=== PATIENT | male | born 1990 | race Caucasian/White ===

== ENCOUNTER 2020-02-13 20:03 | Emergency (ER) | payer BC ==
[~2020-02-13] VITALS: Ht 180.3 cm; Wt 156.8 kg
[2020-02-13] MEDS ORDERED: IV NORMAL SALINE 1000ML BAG 1,000 ML IV ONE (21:00)
[2020-02-13] MEDS ORDERED: diphenhydrAMINE 50 MG/ML VIAL IVP ONE (21:00)
[2020-02-13] MEDS ORDERED: PROCHLORPERAZINE 10 MG/2 ML VIAL. IV ONE (21:00)
--- NOTE | 2020-02-13 21:02 | PHYS DOC ---
General Adult EDM: Chief Complaint: HYPERTENSION HPI: HPI: The history was obtained from the patient. Patient is a 29-year-old male with PMH asthma who presents with a chief complaint of headache. Patient states he has had a headache for the past 24 hours. He states headache was gradual in onset. States it feels like a band is wrapped around his head. Denies any vision or hearing changes. Denies vomiting. Denies neck pain. Has not tried medicine at home to help. Denies syncope. States he was at rest when the headache began. Also notes some gradual increase in shortness of breath. States has a history of asthma so it is not all that unusual for him but he states it does seem slightly worse than normal. Unsure when this became worse. Denies chest pain. Does note a 15 pound weight gain over the past 2 to 3 months. States he's arms do feel tight bilaterally. Denies back pain. States he does not have a history of high blood pressure. States he was an urgent care facility prior to arrival and they stated he should go to emergency department because they were closing soon do not have capabilities to care for him. Denies cough or fever. Patient denies acute onset of headache reaching maximal intensity in under one hour. This is neither the worst headache that Patient has ever experienced, nor was the onset timed with exertional activity or trauma. Patient has not experienced any fever, unusual neck pain or stiffness, syncope, or near syncope. Patient denies numbness, tingling, or weakness of the extremities. Patient also denies personal history of intracranial hemorrhage (including SAH), aneurysm, or AV malformation. Review of Systems: Review of Systems: Constitutional: Denies fever or chills. [] Eyes: Denies change in visual acuity. [] HENT: Denies nasal congestion or sore throat. [] Respiratory: Positive shortness of breath Cardiovascular: Denies chest pain or edema. [] GI: Denies abdominal pain, nausea, vomiting, bloody stools or diarrhea. [] : Denies dysuria. [] Musculoskeletal: Denies back pain or joint pain. [] Integument: Denies rash. [] Neurologic: Positive for headache Endocrine: Denies polyuria or polydipsia. [] Lymphatic: Denies swollen glands. [] Psychiatric: Denies depression or anxiety. [] Heart Score: Risk Factors: Risk Factors: DM, Current or recent (<one month) smoker, HTN, HLP, family history of CAD, obesity. Risk Scores: Score 0 - 3: 2.5% MACE over next 6 weeks - Discharge Home Score 4 - 6: 20.3% MACE over next 6 weeks - Admit for Clinical Observation Score 7 - 10: 72.7% MACE over next 6 weeks - Early Invasive Strategies Physical Exam: PE: Constitutional: Well developed, well nourished, no acute distress, non-toxic appearance. [] HENT: Normocephalic, atraumatic, bilateral external ears normal, oropharynx moist, no oral exudates, nose normal. [] Eyes: PERRLA, EOMI, conjunctiva normal, no discharge. [] Neck: Normal range of motion, no tenderness, supple, no stridor. [] Cardiovascular:Heart rate regular rhythm, no murmur [] Lungs & Thorax: Bilateral breath sounds clear to auscultation [] Abdomen: soft, no tenderness, no masses, no pulsatile masses. [] Skin: Warm, dry, no erythema, no rash. [] Back: No tenderness, no CVA tenderness. [] Extremities: No tenderness, no cyanosis, no clubbing, ROM intact, no edema. [] Neurologic: Alert with intact cognitive function. No aphasia, dysarthria, or neglect. GCS 15. Pupils 3 mm briskly reactive b/l. No APD present. Cranial nerves 2-12 grossly intact; no facial asymmetry present, tongue midline, shoulder shrugging strength intact. Strength 5/5 and symmetric throughout. Light touch sensation intact throughout. Cerebellar testing appropriate without evidence of dysdiadochokinesia. DTR's 2+ in all 4 extremities. Negative pronator drift bilaterally. Gait normal Psychologic: Affect normal, judgement normal, mood normal. [] Current Patient Data: Labs: Laboratory Tests Test 02/13/20 20:50 White Blood Count 11.0 x10^3/uL Red Blood Count 5.42 x10^6/uL Hemoglobin 14.5 g/dL Hematocrit 42.8 % Mean Corpuscular Volume 79 fL Mean Corpuscular Hemoglobin 27 pg Mean Corpuscular Hemoglobin Concent 34 g/dL Red Cell Distribution Width 14.2 % Platelet Count 283 x10^3/uL Neutrophils (%) (Auto) 66 % Lymphocytes (%) (Auto) 27 % Monocytes (%) (Auto) 4 % Eosinophils (%) (Auto) 1 % Basophils (%) (Auto) 2 % Neutrophils # (Auto) 7.2 x10^3/uL Lymphocytes # (Auto) 3.0 x10^3/uL Monocytes # (Auto) 0.5 x10^3/uL Eosinophils # (Auto) 0.2 x10^3/uL Basophils # (Auto) 0.2 x10^3/uL Sodium Level 135 mmol/L Potassium Level 3.5 mmol/L Chloride Level 97 mmol/L Carbon Dioxide Level 31 mmol/L Anion Gap 7 Blood Urea Nitrogen 14 mg/dL Creatinine 1.0 mg/dL Estimated GFR (Cockcroft-Gault) 87.2 BUN/Creatinine Ratio 14 Glucose Level 286 mg/dL Calcium Level 9.6 mg/dL Magnesium Level 2.2 mg/dL Total Bilirubin 1.0 mg/dL Aspartate Amino Transf (AST/SGOT) 83 U/L Alanine Aminotransferase (ALT/SGPT) 161 U/L Alkaline Phosphatase 114 U/L Troponin I Quantitative < 0.017 ng/mL FV-Eaa-Q-Type Natriuretic Peptide 228 pg/mL Total Protein 8.6 g/dL Albumin 3.5 g/dL Albumin/Globulin Ratio 0.7 Current Medications Medications (Trade) Dose Ordered Sig/Mikala Route PRN Reason Start Time Stop Time Status Last Admin Dose Admin Sodium Chloride 1,000 ml @ 1,000 mls/hr 1X ONCE IV 02/13/20 21:00 02/13/20 21:59 DC 02/13/20 21:09 Prochlorperazine Edisylate (Compazine) 10 mg 1X ONCE IV 02/13/20 21:00 02/13/20 21:11 DC 02/13/20 21:08 Diphenhydramine HCl (Benadryl) 50 mg 1X ONCE IVP 02/13/20 21:00 02/13/20 21:11 DC 02/13/20 21:09 Labetalol HCl (Normodyne Iv Push) 20 mg 1X ONCE IVP 02/13/20 22:00 02/13/20 22:01 DC 02/13/20 22:03 Ondansetron HCl (Zofran) 4 mg PRN Q8HRS PRN IV NAUSEA/VOMITING 02/13/20 22:15 02/14/20 22:14 UNV Vital Signs: Vital Signs Date Time Temp Pulse Resp B/P (MAP) Pulse Ox O2 Delivery O2 Flow Rate FiO2 02/13/20 20:20 99.1 95 18 212/130 (157) 96 Room Air 99.1 EKG: EKG: [] EKG consistent with normal sinus rhythm. Ventricular rate of 91 bpm. Left axis noted. Intervals normal. Left atrial enlargement appreciated. No acute ischemic changes noted. Radiology/Procedures: Radiology/Procedures: [address] [address] IMAGING REPORT Signed PATIENT: MELY PERRY ACCOUNT: [id number] : 1990 LOCATION: ER AGE: 29 SEX: M EXAM STATUS: REG ER ORD. PHYSICIAN: MARGRET QUARLES DO REASON: SOB PROCEDURE: CHEST AP ONLY EXAM: CHEST AP ONLY 02/13/2020 8:58 PM CLINICAL INDICATION: Shortness of breath COMPARISON: None TECHNIQUE: AP upright view of the chest FINDINGS: The heart and mediastinum are normal. Lungs are well-expanded and clear. No consolidation, pleural effusion, or pneumothorax. Pulmonary vascularity is normal. The thoracic skeleton is intact. IMPRESSION: Normal chest radiograph. Electronically signed by: Amada Grigsby MD (02/13/2020 9:25 PM) [id number] DICTATED and SIGNED BY: AMADA GRIGSBY MD DATE: 02/13/[address] [address] IMAGING REPORT Signed PATIENT: MELY PERRY ACCOUNT: [id number] : 1990 LOCATION: ER AGE: 29 SEX: M EXAM STATUS: REG ER ORD. PHYSICIAN: MARGRET QUARLES DO REASON: CARLSON PROCEDURE: CT HEAD WO CONTRAST EXAM: CT head without contrast INDICATION: Headache COMPARISON: None TECHNIQUE: Axial CT imaging through the head without intravenous contrast. One or more of the following individualized dose reduction techniques were utilized for this examination: 1. Automated exposure control 2. Adjustment of the mA and/or kV according to patient size 3. Use of iterative reconstruction technique. FINDINGS: The ventricles and sulci are normal. Perry-white matter differentiation is maintained. There is no intracranial hemorrhage, acute infarct, or mass lesion. Basal cisterns are clear. The skull and scalp are intact. Paranasal sinuses and mastoid air cells are clear. Globes and orbits are intact. IMPRESSION: Normal CT of the head. Electronically signed by: Amada Grigsby MD (02/13/2020 9:24 PM) [id number] DICTATED and SIGNED BY: AMADA GRIGSBY MD DATE: 02/13/202123 [] Course & Med Decision Making: Course & Med Decision Making Pertinent Labs and Imaging studies reviewed. (See chart for details) [] Patient is a 29-year-old male who presents with chief complaint of headache associated with gradual onset shortness of breath. Initial vital signs notable for systolic blood pressure approximately 230. Neurologic exam without focal deficit. Head imaging was obtained and was unremarkable. Basic labs were obtained. Patient does have a nonfasting glucose of approximately 286. I do feel this likely represents new onset type 2 diabetes. Patient was given 1 dose of 20 mg of labetalol and his blood pressure did improve to a systolic of 140. I do feel the patient would benefit from hospitalization for management of his uncontrolled hypertension and new onset diabetes. Initially patient was agreeable to hospitalization however after waiting in the emergency department for placement he change his mind. He states he would like to go home for outpatient follow-up. I did explain to patient that uncontrolled hypertension can result in life-threatening illnesses including but not limited to stroke, kidney failure, [place]. Patient does appear to have capacity at this time. He does appear to be alert and oriented x3 and clinically sober. He does express un derstanding is basic healthcare needs as well as potential consequences. I do feel it is reasonable to still start the patient on a low-dose antihypertensive given his systolic blood pressure was over 200 on arrival. Anti-hyperglycemia medication will be deferred. He will be given a list of primary care physicians to follow-up with. He was encouraged to report back to the emergency department anytime should he want to be reevaluated. He will be leaving AGAINST MEDICAL ADVICE. Perla Disclaimer: Perla Disclaimer: This electronic medical record was generated, in whole or in part, using a voice recognition dictation system. Departure Departure Impression: Primary Impression: Accelerated hypertension Additional Impression: Diabetes mellitus, new onset Disposition: 07 AGAINST MEDICAL ADVICE Condition: STABLE Referrals: NO PCP (PCP) Patient Instructions: Diabetes and Exercise-SportsMed, Hypertension Additional Instructions: [facility] [address] [place] [address] [facility] [address] [place] [address] [facility] [address] [place] [address] [facility] [address] [place] [address] [facility] [address] [place] [address] [address] [place] [address] [facility] [address] [place] [address] [facility] [address] [place] [address] [facility] [address] [place] [address] [facility] [address] [place] [address] Scripts Chlorthalidone (CHLORTHALIDONE ) 25 Mg Tablet 25 MG PO DAILY for DIURETIC for 14 Days, #14 TAB Prov: MARGRET QUARLES DO 02/13/20 MARGRET QUARLES DO Feb 13, 2020 21:02
[2020-02-13 21:05] LABS: BASO # 0.2 x10^3/uL (0.0-0.2); BASO % 2 % (0-3); EOS # 0.2 x10^3/uL (0.0-0.7); EOS % 1 % (0-3); HEMATOCRIT 42.8 % (39.0-53.0); HEMOGLOBIN 14.5 g/dL (13.0-17.5); LYMPH % 27 % (24-48); MEAN CORPUSCULAR HEMOGLOBIN 27 pg (25-35); MEAN CORPUSCULAR HGB CONC 34 g/dL (31-37); MEAN CORPUSCULAR VOLUME 79 fL (79-100); MONO # 0.5 x10^3/uL (0.0-1.1); MONO % 4 % (0-9); NEUT # 7.2 x10^3/uL (1.8-7.7); NEUT % 66 % (31-73); PLATELET COUNT 283 x10^3/uL (140-400); RED BLOOD COUNT 5.42 x10^6/uL (4.30-5.70); RED CELL DISTRIBUTION WIDTH 14.2 % (11.5-14.5)
[2020-02-13 21:20] LABS: CALCIUM 9.6 mg/dL (8.5-10.1); GFR 87.2; POTASSIUM 3.5 mmol/L (3.5-5.1)
[2020-02-13 21:26] LABS: ALBUMIN 3.5 g/dL (3.4-5.0); ALBUMIN/GLOBULIN RATIO 0.7 (1.0-1.7); MAGNESIUM 2.2 mg/dL (1.8-2.4); TOTAL PROTEIN 8.6 g/dL (6.4-8.2)
--- NOTE | 2020-02-13 21:27 | RAD ---
EXAM: CT head without contrast INDICATION: Headache COMPARISON: None TECHNIQUE: Axial CT imaging through the head without intravenous contrast. One or more of the following individualized dose reduction techniques were utilized for this examination: 1. Automated exposure control 2. Adjustment of the mA and/or kV according to patient size 3. Use of iterative reconstruction technique. FINDINGS: The ventricles and sulci are normal. Perry-white matter differentiation is maintained. There is no intracranial hemorrhage, acute infarct, or mass lesion. Basal cisterns are clear. The skull and scalp are intact. Paranasal sinuses and mastoid air cells are clear. Globes and orbits are intact. IMPRESSION: Normal CT of the head. Electronically signed by: Amada Grigsby MD (02/13/2020 9:24 PM) [id number]
--- NOTE | 2020-02-13 21:28 | RAD ---
EXAM: CHEST AP ONLY 02/13/2020 8:58 PM CLINICAL INDICATION: Shortness of breath COMPARISON: None TECHNIQUE: AP upright view of the chest FINDINGS: The heart and mediastinum are normal. Lungs are well-expanded and clear. No consolidation, pleural effusion, or pneumothorax. Pulmonary vascularity is normal. The thoracic skeleton is intact. IMPRESSION: Normal chest radiograph. Electronically signed by: Amada Grigsby MD (02/13/2020 9:25 PM) [id number]
[2020-02-13] MEDS ORDERED: LABETALOL 20 MG/4 ML DISP.SYRIN. IVP ONE (22:00)
[2020-02-13 22:09] VITALS: BP 145/72
[2020-02-13] MEDS ORDERED: ONDANSETRON PF 4 MG/2 ML VIAL. IV PRN (22:15)
[2020-02-13 22:19] LABS: BILIRUBIN,URINE NEGATIVE (NEG); CLARITY,URINE CLEAR; COLOR,URINE YELLOW; NITRITE,URINE NEGATIVE (NEG); PROTEIN,URINE NEGATIVE (NEG-TRACE); UROBILINOGEN,URINE 0.2 mg/dL (0.2 mg/dL)
[2020-02-13 22:23] LABS: HYALINE CASTS, URINE MODERATE /HPF
[2020-02-13 22:24] LABS: BACTERIA,URINE 0 /HPF (0-FEW); RBC,URINE 0 /HPF (0-2)
[2020-02-13] MEDS ORDERED: CHLO25TA10 PO (22:50)
--- NOTE | 2020-02-14 15:48 | EKG ---
[facility] [address] [place] [address] Test Date: 2020-02-13 Test Time: 21:06:25 Pat Name: MELY PERRY Department: Room: Gender: M Operating Room Specialist: : 1990 Requested By: MARGRET QUARLES Order Number: [id number] Reading MD: Measurements Intervals Moran Rate: 91 P: 44 IA: 148 QRS: 8 QRSD: 94 T: 28 QT: 366 QTc: 458 Interpretive Statements SINUS RHYTHM LEFT ATRIAL ABNORMALITY ABNORMAL ECG RI6.01 No previous ECG available for comparison
[2020-02-15 01:09] LABS: HEMOGLOBIN A1C <4.2 % (4.8-5.6)
== END 2020-02-13 22:59 | disposition left against medical advice (07) ==
LOC: ER 20:03
DX: I10 Essential (primary) hypertension (principal); E11.9 Type 2 diabetes mellitus without complications; R51.9 Headache, unspecified; J45.909 Unspecified asthma, uncomplicated
CPT/HCPCS: 36415; 70450; 71045; 80053; 81001; 83036; 83735; 83880; 84484; 85025; 93005; 96361; 96374; 96375; 99285; J0780; J1200; J3490; J7030